=== PATIENT | female | born 1955 | race African-American/Black ===

== ENCOUNTER 2016-09-08 18:33 | Emergency (ER) | payer OTHER ==
[~2016-09-08] VITALS: Ht 149.9 cm; Wt 60.0 kg
[~2016-09-08 18:33] MED LIST: GABA300C3 PO; INDO25 PO; LASI20TA PO; VERA40TA PO
[2016-09-08 18:36] VITALS: BP 186/84; PULSE 60; RESP 20; TEMP 98.3; O2SAT 99
[2016-09-08] MEDS ORDERED: KETOROLAC TROMETHAMINE 30 MG/ML (IVP) VIAL IVP ONE (19:45)
[2016-09-08] MEDS ORDERED: PROCHLORPERAZINE INJ 10 MG/2 ML VIAL IVP ONE (19:45)
[2016-09-08] MEDS ORDERED: SODIUM CHLORIDE 0.9% FLUSH 10 ML FLUSH IVF PRN (19:45)
[2016-09-08] MEDS ORDERED: diphenhydrAMINE HCL 50 MG/ML VIAL IVP ONE (19:45)
--- NOTE | 2016-09-08 19:53 | PD ---
HPI Chief Complaint: Headache Time Seen by Provider: 19:43 Travel History International Travel<30 days: No Contact w/Intl Traveler<30days: No Traveled to known affect area: No History of Present Illness HPI Patient is a 61-year-old female presenting to emergency for evaluation of a headache. Patient states the headache started yesterday, left side, retro- orbital with radiation to her pentecostal. She denies any nausea or vomiting but reports photophobia. Patient had similar headaches in the past however this headache is more painful and is radiating down her face to her neck. She denies any slurred speech, weakness, visual changes, chest pain, shortness of breath. PFSH Past Medical History Diminished Hearing: No Glaucoma: Yes Neurologic: Yes (trigeminal neuralgia) Migraines: Yes Sleep Apnea: Yes (on CPAP) Menopausal: Yes : 2 Para: 1 : 1 Past Surgical History Eye Surgery: Yes (cataract ) Other Surgery: Yes Social History Alcohol Use: Yes (twice a week ) Tobacco Use: No Substance Use: No Allergies-Medications (Allergen,Severity, Reaction): Coded Allergies: Codeine (Verified Allergy, Mild, 09/08/16) Reported Meds & Prescriptions Reported Meds & Active Scripts Active Reported Cosopt Opth Drops (Dorzolamide-Timolol Opth Drops) 22.3-6.8 Mg/Ml Soln 1 Drop EACH EYE BID Verapamil (Verapamil HCl) 40 Mg Tab 40 Mg PO Q8H Indomethacin 25 Mg Cap 25 Mg PO DAILY Take with food, milk, or antacids to decrease stomach adverse effects. Gabapentin 300 Mg Cap 300 Mg PO TID Review of Systems Except as stated in HPI: all other systems reviewed are Neg Eyes: Positive: Photophobia, No: Blurred Vision, Pain, Visual changes HENT: Positive: Headaches, No: Neck Pain Cardiovascular: No: Chest Pain or Discomfort Respiratory: No: Shortness of Breath Gastrointestinal: No: Nausea, Vomiting, Abdominal Pain Neurologic: No: Weakness, Dizziness, Syncope, Focal Abnormalities Physical Exam Narrative GENERAL: Well-developed, well-nourished, -[place] female. SKIN: Warm and dry. HEAD: Atraumatic. Normocephalic. EYES: Pupils equal and round. No scleral icterus. No injection or drainage. Extraocular movements are intact. ENT: No nasal bleeding or discharge. Mucous membranes pink and moist. NECK: Trachea midline. No JVD. CARDIOVASCULAR: Regular rate and rhythm. RESPIRATORY: No accessory muscle use. Clear to auscultation. Breath sounds equal bilaterally. GASTROINTESTINAL: Abdomen soft, non-tender, nondistended. Hepatic and splenic margins not palpable. MUSCULOSKELETAL: Extremities without clubbing, cyanosis, or edema. No obvious deformities. NEUROLOGICAL: Awake and alert. No obvious cranial nerve deficits. Motor grossly within normal limits. Five out of 5 muscle strength in the arms and legs. Normal speech. PSYCHIATRIC: Appropriate mood and affect; insight and judgment normal. Data Data Last Documented VS Vital Signs Date Time Temp Pulse Resp B/P Pulse Ox O2 Delivery O2 Flow Rate FiO2 09/08/16 20:12 60 16 155/70 98 Room Air 09/08/16 18:36 98.3 Orders Complete Blood Count With Diff (09/08/16 19:33) Comprehensive Metabolic Panel (09/08/16 19:33) C-Reactive Protein (Crp) (09/08/16 19:33) Ct Brain W/O Iv Contrast(Rout) (09/08/16 19:33) Ecg Monitoring (09/08/16 19:33) Iv Access Insert/Monitor (09/08/16 19:33) Oximetry (09/08/16 19:33) Sodium Chloride 0.9% Flush (Ns Flush) (09/08/16 19:45) Ketorolac Inj (Toradol Inj) (09/08/16 19:45) Prochlorperazine Inj (Compazine Inj) (09/08/16 19:45) Diphenhydramine Inj (Benadryl Inj) (09/08/16 19:45) Potassium Chloride (Kcl) (09/08/16 21:15) Labs Laboratory Tests Test 09/08/16 19:35 White Blood Count 6.3 TH/MM3 Red Blood Count 4.25 MIL/MM3 Hemoglobin 13.0 GM/DL Hematocrit 39.7 % Mean Corpuscular Volume 93.3 FL Mean Corpuscular Hemoglobin 30.4 PG Mean Corpuscular Hemoglobin 32.6 % Concent Red Cell Distribution Width 13.6 % Platelet Count 275 TH/MM3 Mean Platelet Volume 8.9 FL Neutrophils (%) (Auto) 45.6 % Lymphocytes (%) (Auto) 43.5 % Monocytes (%) (Auto) 9.3 % Eosinophils (%) (Auto) 1.2 % Basophils (%) (Auto) 0.4 % Neutrophils # (Auto) 2.9 TH/MM3 Lymphocytes # (Auto) 2.7 TH/MM3 Monocytes # (Auto) 0.6 TH/MM3 Eosinophils # (Auto) 0.1 TH/MM3 Basophils # (Auto) 0.0 TH/MM3 CBC Comment DIFF FINAL Differential Comment Sodium Level 139 MEQ/L Potassium Level 3.4 MEQ/L Chloride Level 108 MEQ/L Carbon Dioxide Level 22.7 MEQ/L Anion Gap 8 MEQ/L Blood Urea Nitrogen 14 MG/DL Creatinine 0.74 MG/DL Estimat Glomerular Filtration 97 ML/MIN Rate Random Glucose 81 MG/DL Calcium Level 8.9 MG/DL Total Bilirubin 0.3 MG/DL Aspartate Amino Transf 21 U/L (AST/SGOT) Alanine Aminotransferase 24 U/L (ALT/SGPT) Alkaline Phosphatase 73 U/L C-Reactive Protein 0.33 MG/DL Total Protein 7.4 GM/DL Albumin 3.8 GM/DL MDM Medical Decision Making Medical Screen Exam Complete: Yes Emergency Medical Condition: Yes Interpretation(s) Last Impressions Head CT 09/08/16 1933 Signed Impressions: Service Date/Time: Thursday, September 08, 2016 19:59 - CONCLUSION: Unremarkable study. Sacha De La Torre MD Laboratory Tests Test 09/08/16 19:35 White Blood Count 6.3 TH/MM3 Red Blood Count 4.25 MIL/MM3 Hemoglobin 13.0 GM/DL Hematocrit 39.7 % Mean Corpuscular Volume 93.3 FL Mean Corpuscular Hemoglobin 30.4 PG Mean Corpuscular Hemoglobin 32.6 % Concent Red Cell Distribution Width 13.6 % Platelet Count 275 TH/MM3 Mean Platelet Volume 8.9 FL Neutrophils (%) (Auto) 45.6 % Lymphocytes (%) (Auto) 43.5 % Monocytes (%) (Auto) 9.3 % Eosinophils (%) (Auto) 1.2 % Basophils (%) (Auto) 0.4 % Neutrophils # (Auto) 2.9 TH/MM3 Lymphocytes # (Auto) 2.7 TH/MM3 Monocytes # (Auto) 0.6 TH/MM3 Eosinophils # (Auto) 0.1 TH/MM3 Basophils # (Auto) 0.0 TH/MM3 CBC Comment DIFF FINAL Differential Comment Sodium Level 139 MEQ/L Potassium Level 3.4 MEQ/L Chloride Level 108 MEQ/L Carbon Dioxide Level 22.7 MEQ/L Anion Gap 8 MEQ/L Blood Urea Nitrogen 14 MG/DL Creatinine 0.74 MG/DL Estimat Glomerular Filtration 97 ML/MIN Rate Random Glucose 81 MG/DL Calcium Level 8.9 MG/DL Total Bilirubin 0.3 MG/DL Aspartate Amino Transf 21 U/L (AST/SGOT) Alanine Aminotransferase 24 U/L (ALT/SGPT) Alkaline Phosphatase 73 U/L C-Reactive Protein 0.33 MG/DL Total Protein 7.4 GM/DL Albumin 3.8 GM/DL Vital Signs Date Time Temp Pulse Resp B/P Pulse Ox O2 Delivery O2 Flow Rate FiO2 09/08/16 18:49 79 18 98 Room Air 09/08/16 18:36 98.3 60 20 186/84 99 Room Air Differential Diagnosis Hemorrhage versus migraine versus trigeminal neuralgia versus electrolyte abnormality versus other Narrative Course Patient is a 61-year-old female presenting to the emergency department for evaluation of a headache. Headache is not unlike headaches she has had in the past. Patient is neurologically intact. Labs and imaging ordered and pending, medications order to alleviate pain is ordered. CBC is unremarkable Potassium 3.4, oral replacement ordered. CRP 0.33 Patient was reassessed, her headache symptoms have been alleviated. Has been to the emergency department several times in the past with similar presentation. She is encouraged to follow-up with her primary doctor. She is encouraged to rest, maintain adequate fluid intake, maintain a consistent sleep schedule. She was advised to return to emergency department for any new or worsening symptoms. Patient verbalized understanding of instructions. Patient stable for discharge. Diagnosis Primary Impression: Headache Qualified Code: R51 - Nonintractable headache, unspecified chronicity pattern , unspecified headache type Referrals: Primary Care Physician 3 days Patient Instructions: Acute Headache (ED), General Instructions Additional Instructions: Follow-up with her primary doctor Maintain adequate fluid intake, rest, maintain a steady sleep schedule Return to emergency department for any new or worsening symptoms Med/Other Pt SpecificInfo: No Change to Meds Disposition: 01 DISCHARGE HOME Condition: Stable Amanda Thomson Sep 08, 2016 19:53
--- NOTE | 2016-09-08 20:09 | RADRPT ---
EXAM DATE/TIME: 09/08/2016 19:59 [facility] COMPARISON: CT BRAIN W/O CONTRAST, January 26, 2016, 20:02. INDICATIONS : Headache with sensitivity to light X 3 days. RADIATION DOSE: 37.94 CTDIvol (mGy) MEDICAL HISTORY : None SURGICAL HISTORY : None. ENCOUNTER: Initial ACUITY: 1 day PAIN SCALE: 8/10 LOCATION: cranial TECHNIQUE: Multiple contiguous axial images were obtained of the head. Using automated exposure control and adjustment of the mA and/or kV according to patient size, radiation dose was kept as low as reasonably achievable to obtain optimal diagnostic quality images. DICOM format image data is av ailable electronically for review and comparison. FINDINGS: There is no evidence for intracranial hemorrhage, mass effect, mass lesions, edema, or extra-axial fl uid collections. The visualized bony structures appear intact. The ventricles are normal size for t he patient's age. There are no signs of acute infarction for technique. CONCLUSION: Unremarkable study. Sacha De La Torre MD on September 08, 2016 at 20:06 Board Certified Radiologist. This report was verified electronically.
[2016-09-08 20:12] VITALS: BP 155/70; PULSE 60; RESP 16; O2SAT 98
[2016-09-08 20:15] LABS: AUTOMATED NEUTROPHIL # 2.9 TH/MM3 (1.8-7.7); BASOPHIL % 0.4 % (0.0-2.0); EOSINOPHIL # 0.1 TH/MM3 (0-0.4); EOSINOPHIL % 1.2 % (0.0-4.0); HEMATOCRIT 39.7 % (35.0-46.0); HEMO FLAGS DIFF FINAL; LYMPH % 43.5 % (9.0-44.0); LYMPHOCYTE # 2.7 TH/MM3 (1.0-4.8); MEAN CELL VOLUME 93.3 FL (80.0-100.0); MEAN CORPUSCULAR HEMOGLOBIN 30.4 PG (27.0-34.0); MEAN CORPUSCULAR HGB CONC 32.6 % (32.0-36.0); MONO % 9.3 % (0.0-8.0); NEUT % 45.6 % (16.0-70.0); PLATELET COUNT 275 TH/MM3 (150-450); RED BLOOD COUNT 4.25 MIL/MM3 (4.00-5.30); RED CELL DISTRIBUTION WIDTH 13.6 % (11.6-17.2); WHITE BLOOD COUNT 6.3 TH/MM3 (4.0-11.0)
[2016-09-08] MEDS ORDERED: GABA300C5 PO (20:15)
[2016-09-08] MEDS ORDERED: DORZ2SOL7 EACH EYE (20:15)
[2016-09-08] MEDS ORDERED: VERA40TA PO (20:15)
[2016-09-08] MEDS ORDERED: INDO25CA PO (20:15)
[2016-09-08 20:31] LABS: ANION GAP 8 MEQ/L (5-15); AST (GOT) 21 U/L (15-37); BICARBONATE 22.7 MEQ/L (21.0-32.0); BLOOD UREA NITROGEN 14 MG/DL (7-18); CHLORIDE 108 MEQ/L (98-107); GLOMERULAR FILTRATION RATE 97 ML/MIN (>89); POTASSIUM 3.4 MEQ/L (3.5-5.1); SODIUM (NA) 139 MEQ/L (136-145)
[2016-09-08 20:44] LABS: ALKALINE PHOSPHATASE 73 U/L (45-117); ALT (GPT) 24 U/L (10-53); TOTAL BILIRUBIN ADULT 0.3 MG/DL (0.2-1.0)
[2016-09-08] MEDS ORDERED: POTASSIUM CHLORIDE 10 MEQ CONTROLLED RELEASE TAB PO ONE (21:15)
== END 2016-09-08 22:02 | disposition home or self-care (01) ==
LOC: NEPE 18:33
DX: R51 Headache (principal); H53.149 Visual discomfort, unspecified; G50.0 Trigeminal neuralgia; Z79.899 Other long term (current) drug therapy; Z88.5 Allergy status to narcotic agent
CPT/HCPCS: 70450; 80053; 85025; 86140; 96374; 96375; 99285; J0780; J1200; J1885

== ENCOUNTER 2017-01-17 15:21 | Emergency (ER) | payer OTHER ==
[~2017-01-17] VITALS: Ht 152.4 cm; Wt 65.0 kg
[~2017-01-17 15:21] MED LIST changes: +DORZ2SOL7 EACH EYE; -GABA300C3 PO; +GABA300C5 PO; -INDO25 PO; +INDO25CA PO; -LASI20TA PO
[2017-01-17 15:29] VITALS: BP 148/79; PULSE 61; RESP 12; TEMP 98.4; O2SAT 99
--- NOTE | 2017-01-17 15:54 | PD ---
HPI Chief Complaint: Headache Time Seen by Provider: 15:42 Travel History International Travel<30 days: No Contact w/Intl Traveler<30days: No Traveled to known affect area: No History of Present Illness HPI 61-year-old female presents to emergency department complaining of a migraine located in her left frontal and left facial area. Patient states that she is having some stabbing pain in the area that comes on quickly and goes away. States this occurs a couple times an hour. Social states the stabbing pain radiates from her ear area to her shoulder. Patient denies photophobia. States she has left jaw 'numbness'. Patient denies fever, chills, chest pain, shortness of breath, abdominal pain, nausea, vomiting, diarrhea, visual changes. States she does have a history of glaucoma but she has had surgery to correct this. Patient has been able to eat and drink normally. Patient states that she has headaches like this every 3-4 months and she tried to see her primary care physician however, they're unavailable today. Patient normally takes gabapentin for her headache and is to follow-up with neurology on Friday. PFSH Past Medical History Diminished Hearing: No Glaucoma: Yes Neurologic: Yes (trigeminal neuralgia) Migraines: Yes Sleep Apnea: Yes (on CPAP) ?: Not Menopausal: Yes : 2 Para: 1 : 1 Past Surgical History Eye Surgery: Yes (cataract ) Other Surgery: Yes Social History Alcohol Use: Yes (twice a week ) Tobacco Use: No Substance Use: No Allergies-Medications (Allergen,Severity, Reaction): Coded Allergies: codeine (Unverified Allergy, Mild, 01/17/17) Reported Meds & Prescriptions Reported Meds & Active Scripts Active Carbamazepine 200 Mg Tab 200 Mg PO BID PRN 3 Days Ibuprofen 600 Mg Tab 600 Mg PO TID 5 Days Medrol Dosepak (Methylprednisolone) 4 Mg Dspk 4 Mg PO DIRECTED Per Pharmacist direction Reported Cosopt Opth Drops (Dorzolamide-Timolol Opth Drops) 22.3-6.8 Mg/Ml Soln 1 Drop EACH EYE BID Verapamil (Verapamil HCl) 40 Mg Tab 40 Mg PO Q8H Indomethacin 25 Mg Cap 25 Mg PO DAILY Take with food, milk, or antacids to decrease stomach adverse effects. Gabapentin 300 Mg Cap 300 Mg PO TID Review of Systems Except as stated in HPI: all other systems reviewed are Neg Physical Exam Narrative GENERAL: Well-developed well-nourished in no apparent distress, non-slurring speech SKIN: Focused skin assessment warm/dry. HEAD: Atraumatic. Normocephalic. EYES: Pupils equal and round. No scleral icterus. No injection or drainage. ENT: No nasal bleeding or discharge. Mucous membranes pink and moist. NECK: Trachea midline. No JVD. No midline tenderness CARDIOVASCULAR: Regular rate and rhythm. No murmur appreciated. RESPIRATORY: No accessory muscle use. Clear to auscultation. Breath sounds equal bilaterally. GASTROINTESTINAL: Abdomen soft, non-tender, nondistended. MUSCULOSKELETAL: No obvious deformities. No clubbing. No cyanosis. No edema. NEUROLOGICAL: Awake and alert. No obvious cranial nerve deficits. Motor grossly within normal limits. 5 out of 5 strength. Normal speech. Negative pronator drift. Cerebellar movements intact. PSYCHIATRIC: Appropriate mood and affect; insight and judgment normal. Data Data Last Documented VS Vital Signs Date Time Temp Pulse Resp B/P (MAP) Pulse Ox O2 Delivery O2 Flow Rate FiO2 01/17/17 19:25 01/17/17 15:29 98.4 61 12 99 Orders Orders Carbamazepine (Tegretol) (01/17/17 16:00) Ketorolac Inj (Toradol Inj) (01/17/17 17:00) Ed Discharge Order (01/17/17 18:48) [facility] Medical Decision Making Medical Screen Exam Complete: Yes Emergency Medical Condition: Yes Differential Diagnosis TIA versus CVA versus migraine headache versus tension headache versus cluster headache Narrative Course 61-year-old female presents to emergency department complaining of a migraine located in her left frontal and left facial area. Patient states that she is having some stabbing pain in the area that comes on quickly and goes away. States this occurs a couple times an hour. Social states the stabbing pain radiates from her ear area to her shoulder. Patient denies photophobia. States she has left jaw 'numbness'. Patient denies fever, chills, chest pain, shortness of breath, abdominal pain, nausea, vomiting, diarrhea, visual changes. States she does have a history of glaucoma but she has had surgery to correct this. Patient has been able to eat and drink normally. Patient states that she has headaches like this every 3-4 months and she tried to see her primary care physician however, they're unavailable today. Patient normally takes gabapentin for her headache and is to follow-up with neurology on Friday. Physical exam essentially unremarkable. Carbamazepine administered in the ED. Vital signs stable Patient reassessed and reassured. Toradol administered IM. Patient reassessed. Patient's symptoms improved. Imaging studies not ordered because of similar symptoms to previous episodes of her chronic migraines. Patient agreed with plan. Will discharge with Medrol Dosepak, ibuprofen, and carbamazepine. Patient strongly advised follow-up with her neurologist as scheduled. Return to the emergency department for worsening or persistent symptoms. Diagnosis Primary Impression: Headache Qualified Codes: R51 - Headache Referrals: Neurologist Additional Instructions: Follow-up with your neurologist on Friday as scheduled. Take medication as prescribed. Scripts Carbamazepine (Carbamazepine) 200 Mg Tab 200 MG PO BID Y for headache for 3 Days, #6 TAB 0 Refills Prov: Luisana Chanel MD 01/17/17 Ibuprofen (Ibuprofen) 600 Mg Tab 600 MG PO TID for Arthritis Pain for 5 Days, TAB 0 Refills Prov: Luisana Chanel MD 01/17/17 Methylprednisolone Dosepak (Medrol Dosepak) 4 Mg Dspk 4 MG PO DIRECTED, #1 DSPK 0 Refills Per Pharmacist direction Prov: Luisana Chanel MD 01/17/17 Disposition: 01 DISCHARGE HOME Condition: Stable Dunia Cordero Jan 17, 2017 15:54
[2017-01-17] MEDS ORDERED: carBAMazepine 200 MG TAB PO ONE (16:00)
--- NOTE | 2017-01-17 16:34 | PD ---
Physical Exam Date Seen by Provider: Jan 17, 2017 Time Seen by Provider: 16:25 Narrative This patient presents complaining with a sharp, stabbing pain on the left side of her head and face. She is already being evaluated for same and has an appointment to see a neurologist next week. Data Data Last Documented VS Vital Signs Date Time Temp Pulse Resp B/P (MAP) Pulse Ox O2 Delivery O2 Flow Rate FiO2 01/17/17 15:29 98.4 61 12 148/79 (102) 99 Orders Orders Carbamazepine (Tegretol) (01/17/17 16:00) MDM Supervised Visit with GURWINDER: Yes Narrative Course I, Dr. Chanel, have reviewed the advance practice practitioner's documentation and am in agreement, met with the patient face to face, made the diagnosis, and the medical decision making was done by me. *My assessment and Findings: The patient is awake and alert and has no focal neurological findings. Management has been discussed with Dunia Cordero PA-C. Please see her note for further details and disposition. Condition: Stable Luisana Chanel MD Jan 17, 2017 16:34
[2017-01-17] MEDS ORDERED: KETOROLAC TROMETHAMINE 60 MG/2 ML (IM) VIAL IM ONE (17:00)
[2017-01-17] MEDS ORDERED: IBUP-232 PO (18:47)
[2017-01-17] MEDS ORDERED: CARB200T PO (18:47)
[2017-01-17] MEDS ORDERED: MEDR4PAK PO (18:47)
== END 2017-01-17 19:35 | disposition home or self-care (01) ==
LOC: NEPD 15:21
DX: R51 Headache (principal); R20.0 Anesthesia of skin; Z79.899 Other long term (current) drug therapy; Z88.5 Allergy status to narcotic agent
CPT/HCPCS: 96372; 99284; J1885